=== PATIENT | female | born 1945 | race Caucasian/White ===

== ENCOUNTER 2020-08-11 17:56 | Inpatient (IN) | payer OTHER ==
[~2020-08-11] VITALS: Ht 167.6 cm; Wt 62.5 kg
[2020-08-11 17:57] VITALS: BP 139/51
[2020-08-11 18:51] LABS: ABSOLUTE NEUTROPHILS 8.9 thou/uL (1.4-8.2); HEMATOCRIT 42.8 % (37.0-47.0); HEMOGLOBIN 14.5 gm/dL (12.0-15.0); MCH 31.1 pg (26.0-34.0); MCHC 33.8 g/dL (28.0-37.0); MONOCYTES 10.7 % (1.0-8.0); PLATELET COUNT 225 thou/uL (150-400); POLYS 77.3 % (36.0-66.0); RBC 4.65 mil/uL (4.20-5.00); RDW 13.6 % (10.5-14.5); WBC 11.5 thou/uL (4.0-11.0)
[2020-08-11 18:54] LABS: URINE BILIRUBIN NEGATIVE (Negative); URINE BLOOD 3+ (Negative); URINE CLARITY CLEAR; URINE COLOR YELLOW; URINE GLUCOSE-RANDOM* 3+ (Negative); URINE KETONES 2+ (Negative); URINE LEUKOCYTES-REFLEX NEGATIVE (Negative); URINE NITRITE-REFLEX NEGATIVE (Negative); URINE PROTEIN (DIPSTICK) NEGATIVE (Negative); URINE SPECIFIC GRAVITY 1.015 (1.005-1.035); URINE UROBILINOGEN 0.2 E.U./dl (0.2-1.0)
[2020-08-11 18:56] LABS: CALCIUM 9.1 mg/dL (8.5-10.1); CREATININE 1.3 mg/dL (0.6-1.0); POTASSIUM 4.1 mmol/L (3.5-5.1)
[2020-08-11 19:14] LABS: BACTERIA-REFLEX None Seen /HPF (None Seen); CRYSTALS None Seen /LPF (None Seen); SQUAMOUS 0-3 Few /LPF (0-3); URINE RBC 1-2 Rare /HPF (NONE SEEN); URINE WBC-REFLEX None Seen /HPF (0-5)
[2020-08-11 19:17] LABS: ALBUMIN 3.9 g/dL (3.4-5.0); TOTAL BILIRUBIN 0.5 mg/dL (0.2-1.0); TOTAL PROTEIN 7.2 g/dL (6.4-8.2)
[2020-08-11] MEDS ORDERED: JANUVIA100 MG PO (19:25)
[2020-08-11] MEDS ORDERED: LIPITOR40 MG PO (19:25)
[2020-08-11] MEDS ORDERED: TRAZODONE HCL50 MG PO (19:26)
[2020-08-11] MEDS ORDERED: MECLIZINE HCL25 M1 PO ×2 (19:27→19:31)
[2020-08-11] MEDS ORDERED: LISINOPRIL2.5 MG PO (19:27)
[2020-08-11] MEDS ORDERED: GLIMEPIRIDE4 MG PO (19:28)
[2020-08-11] MEDS ORDERED: OMEPRAZOLE 20 M20 M1 PO (19:28)
[2020-08-11] MEDS ORDERED: METFORMIN HCL500 M3 PO (19:29)
[2020-08-11] MEDS ORDERED: RISPERDAL 1 MG T1 MG PO (19:30)
[2020-08-11] MEDS ORDERED: MELOXICAM15 MG PO (19:30)
[2020-08-11 19:48] LABS: TROPONIN-I 79.13 ng/mL (<0.06)
--- NOTE | 2020-08-11 20:23 | NUR ---
THIS NURSE CALLED JOHN COLLINS IN ATTEMPT TO FIND WORKING NUMBER FOR DAUGHTER TO INFORM FAMILY ON STATUS OF PATIENT. JOHN COLLINS GAVE ME NUMBER OF [phone] WHERE EMS CALL CAME FROM.
[2020-08-12 05:52] LABS: HEMATOCRIT 36.6 % (37.0-47.0); MCH 31.1 pg (26.0-34.0); MCHC 33.6 g/dL (28.0-37.0); MCV 92.5 fL (80.0-100.0); RBC 3.96 mil/uL (4.20-5.00); RDW 13.6 % (10.5-14.5); WBC 11.9 thou/uL (4.0-11.0)
[2020-08-12 05:57] LABS: HEMOGLOBIN 12.3 gm/dL (12.0-15.0)
[2020-08-12 06:09] LABS: CHOLESTEROL 102 mg/dL (<200); HDL CHOLESTEROL 38 mg/dL (>40); LDL CHOLESTEROL 25 mg/dL (<100); TC:HDL 2.7 Ratio (Not establshd); TRIGLYCERIDE 197 mg/dL (<150); VLDL 39 mg/dL (<40)
[2020-08-12 06:15] LABS: SERUM ASSESSMENT Clear
[2020-08-12 06:28] LABS: CALCIUM 8.1 mg/dL (8.5-10.1); CREATININE 0.8 mg/dL (0.6-1.0); POTASSIUM 3.5 mmol/L (3.5-5.1)
[2020-08-12 06:31] LABS: TROPONIN-I 57.46 ng/mL (<0.06)
--- NOTE | 2020-08-12 07:13 | EKG ---
[place] [address] [employer] [place] [address] ELECTROCARDIOGRAM REPORT Name: CLARISSE JONES Room #: 170-9 ADM IN M.R.#: [id number] Admission: 08/11/20 Attend Phys: Bryce Lucio, Discharge: Date of : 45 Report #: [id number] [facility] ED Test Date: 2020-08-11 Test Time: 20:02:24 Pat Name: CLARISSE JONES Department: Room: 170 Gender: F Collections Representative: : 1945 Requested By: Maria Guadalupe Collins Order Number: [id number] MD: Juan Flor Measurements Intervals [place] Rate: 92 P: AR: QRS: -45 QRSD: 70 T: 99 QT: 486 QTc: 602 Interpretive Statements Atrial flutter Ventricular premature complex Probable inferior infarct, recent Lateral leads are also involved Prolonged QT interval No previous ECG available for comparison Electronically Signed On 08-12-2020 7:13:10 CDT by Juan Flor [email or web address] <ELECTRONICALLY SIGNED> By: Juan Flor MD, [facility] 08/12/20 0713 01 01 Juan Flor MD, FACC /EPI
--- NOTE | 2020-08-12 07:49 | NUR ---
TOOK OVER CARE AT THIS TIME
--- NOTE | 2020-08-12 09:25 | 2DMMODE ---
[facility] [place] [address] 2 D/M-MODE ECHOCARDIOGRAM Name: CLARISSE JONES Room #: 170-9 ADM IN .R.#: [id number] Admission: 08/11/20 Attend Phys: Bryce Lucio, Discharge: Date of : 45 Report #: [id number] THIS REPORT FOR: cc: Nona Gagnon MD Mohan, Purnima, MD Lundgren,Sunny Pollock MD [facility] ~ APPROVED REPORT Study performed: 08/12/2020 08:20:00 EXAM: Comprehensive 2D, Doppler, and color-flow Echocardiogram Patient Location: ER Status: routine BSA: 1.74 HR: 66 bpm BP: 98/60 mmHg Rhythm: Irregular Other Information Study Quality: Adequate Technically limited study due to COPD and breast implants. Indications WA, Aflutter. Hx: COPD, DM. 2D Dimensions RVDd: 28.24 mm IVSd: 9.17 (7-11mm) LVOT Diam: 19.99 (18-24mm) LVDd: 39.52 mm PWd: 9.35 (7-11mm) Ascending Ao: 22.59 (22-36mm) LVDs: 27.24 (25-40mm) Left Atrium: 35.91 (27-40mm) Aortic Root: 26.81 mm Volumes Left Atrial Volume (Systole) Single Plane 4CH: 31.12 mL Aortic Valve AoV Peak Stephan.: 1.65 m/s AO Peak Gr.: 10.84 mmHg LVOT Max P.95 mmHg [facility] [address] [place] [address] 2 D/M-MODE ECHOCARDIOGRAM Name: JONESCLARISSE Emilia Room #: 170-9 ADM IN .R.#: [id number] Admission: 08/11/20 Attend Phys: Bryce Schreiber Discharge: Date of : 45 Report #: [id number] LVOT Max V: 1.41 m/s BRIDGET Vmax: 2.69 cm2 Mitral Valve E/A Ratio: 0.7 MV Decel. Time: 268.57 ms MV E Max Stephan.: 0.73 m/s MV A Stephan.: 1.01 m/s MV PHT: 77.88 ms IVRT: 76.12 ms Pulmonary Valve PV Peak Stephan.: 1.16 m/s PV Peak Gr.: 5.42 mmHg Pulmonary Vein P Vein S: 0.66 m/s P Vein D: 0.37 m/s P Vein S/D Ratio: 1.78 Tricuspid Valve TR Peak Stephan.: 2.81 m/s RAP Estimate: 5.00 mmHg TR Peak Gr.: 32.00 mmHg PA Pressure: 37.00 mmHg Left Ventricle The left ventricle is normal size. There is normal left ventricular wall thickness. Global eft ventricular systolic function is normal. Akinesis base of inferior wall LVEF is 60%. Mild diastolic dysfunction Right Ventricle The right ventricle is normal size. The right ventricular systolic function is normal. Atria The left atrium size is normal. The right atrium size is normal. Aortic Valve Aortic valve is mildly calcified, trileaflet. No aortic regurgitation is present. There is no aortic valvular stenosis. Mitral Valve The mitral valve is normal in structure. Mild-moderate mitral regurgitation. [facility] [address] [place] [address] 2 D/M-MODE ECHOCARDIOGRAM Name: CLARISSE JONES Emilia Room #: 170-9 [facility] IN ..#: [id number] Admission: 08/11/20 Attend Phys: Bryce Schreiber Discharge: Date of : 45 Report #: [id number] Tricuspid Valve The tricuspid valve is normal in structure. Mild tricuspid regurgitation. Estimated PAP is 35 mmHg. Pulmonic Valve The pulmonary valve is normal in structure. There is no pulmonic valvular regurgitation. Great Vessels The aortic root is normal in size. The ascending aorta is normal in size. IVC is normal in size and collapses >50% with inspiration. The pulmonary artery is normal. Pericardium There is no pericardial effusion. <Conclusion> Global eft ventricular systolic function is normal. Akinesis base of inferior wall LVEF is 60%. Mild diastolic dysfunction Aortic valve is mildly calcified, trileaflet. No aortic regurgitation or stenosis. The mitral valve is normal in structure. Mild-moderate mitral regurgitation. Mild tricuspid regurgitation. Estimated pulmonary artery pressure of 35 mmHg. There is no pericardial effusion. <ELECTRONICALLY SIGNED> By: Sunny Fan MD, FACC 08/12/20923 3 3 Sunny Fan MD, [facility] /INF
--- NOTE | 2020-08-12 12:44 | NUR ---
PT ASSISTED ONTO FRACTURE GAO AT THIS TIME WITH X2 RN'S AND TECH TO HAVE A BM
--- NOTE | 2020-08-12 13:00 | NUR ---
PT TAKEN OFF FRACTURE GAO. NO BM AT THIS TIME. PT REPOSITIONED IN BED. CALL LIGHT WITHIN REACH
--- NOTE | 2020-08-12 13:14 | NUR ---
SPOKE WITH SERGE CARROLL NP W/ FREDY. NOTIFIED OF EKG CHANGES. INFORMED WE ARE NOT INTERVENING AT THIS TIME AT DAUGHTER'S REQUEST. PT NOT EXHIBITING CHEST PAIN OR OTHER SYMPTOMS AT THIS TIME. NOTIFIED THAT PT HAS NOT TAKEN METOPROLOL AT THIS TIME. INSTRUCTED THAT IT CAN BE GIVEN IF PT ABLE, OTHERWISE "NOT A BIG DEAL IF NOT GIVEN"
--- NOTE | 2020-08-12 13:49 | NUR ---
WENT TO CHECK ON PT, PT HAD RIPPED IV OUT. PT STATES ACCIDENT THOUGH PT HOLDING IV BY THE CATHETER AND TIP IS INTACT BUT BENT. WILL PLACE NEW LINE. EDUCATION TO PT PROVIDED ON IMPORTANCE OF LEAVING DRAINS AND TUBES IN PLACE
[2020-08-12 14:38] VITALS: BP 113/52
--- NOTE | 2020-08-12 14:51 | NUR ---
REPORT GIVEN TO MARCELA ERAZO AT THIS TIME. PT READY AND STABLE FOR TRANSFER TO THE FLOOR
[2020-08-12 15:07] VITALS: BP 116/47
[2020-08-12 15:25] VITALS: BP 129/50
--- NOTE | 2020-08-12 16:28 | NUR ---
CM ANSWERED [facility] ON UNIT AND THEY INDICATED THAT YARD SPOTTER INDICATED THAT PT HAD CALLED 911. CM NOTIFIED NURSE, US, AND NUCLEAR UNIT OPERATOR. CM TO ASSESS PT IN THE AM AND REACH OUT TO FAMILY.
--- NOTE | 2020-08-12 16:53 | NUR ---
ASSUMED PT CARE UPON ADMISSION TO UNIT FROM ER AROUND 1530. PATIENT VSS, A&OX3. PATIENT REPORTS PAIN OF 10 IN THE RIGHT HIP, BUT IS DENYING PAIN MEDICATION WHEN OFFERED. WILL CONTINUE TO OFFER PAIN MEDICATION TO THIS PATIENT. NO SKIN ISSUES NOTED OTHER THAN BRUISING, BUT PATIENT IS NOT ALLOWING STAFF TO LOOK AT HER BACK HALF TO ASSESS FOR WOUNDS. PATIENT PLACED ON TELEMETRY RUNNING A FIB. IV PATENT TO LEFT AC, FLUIDS INFUSING. PATIENT IS ON ROOM AIR. POOL CATHETER IN PLACE DRAINING WELL. PATIENT HAS CALL LIGHT WITHIN REACH, AND FALL PRECAUTIONS ARE IN PLACE.
[2020-08-12 20:00] VITALS: BP 109/49
[2020-08-13 01:06] LABS: GLYCOHEMOGLOBIN (HGB A1C) 8.3 % (4.8-5.6)
--- NOTE | 2020-08-13 01:43 | NUR ---
assumed care approx 1900 evening 08/12. pt lying in bed with head of bed elevated at change of shift. family at bedside. pt somewhat confused and forgetful. blackman to dd with yellow urine to bag. pt pulled IV out from left ac and new IV site now in right wrist and wrapped with Koban to site. pt now NPO and did not drink much if any before midnight. bed alarm on and call light in reach. will continue to monitor.
--- NOTE | 2020-08-13 06:59 | EKG ---
[place] [address] [employer] [facility] [place] [address] ELECTROCARDIOGRAM REPORT Name: CLARISSE JONES Emilia Room #: 461-P ADM IN M.R.#: [id number] Admission: 08/11/20 Attend Phys: Bryce Lucio, Discharge: Date of : 45 Report #: [id number] [facility] Test Date: 2020-08-12 Test Time: 16:38:01 Pat Name: CLARISSE JONES Department: Room: [facility] Gender: F Instructor Of Nursing: JMI : 1945 Requested By: Larry Caicedo Order Number: [id number] MD: Juan Flor Measurements Intervals [place] Rate: 105 P: WI: QRS: 85 QRSD: 86 T: 123 QT: 389 QTc: 515 Interpretive Statements Atrial fibrillation Paired ventricular premature complexes Inferior infarct, acute (RCA) Prolonged QT interval Probable RV involvement, suggest recording right precordial leads Artifact in lead(s) I,II,aVR,aVL,V1,V2,V3,V4,V5,V6 Compared to ECG 08/11/2020 20:02:24 Atrial flutter no longer present Myocardial infarct finding still present Electronically Signed On 08-13-2020 6:59:28 CDT by Juan Flor [email or web address] <ELECTRONICALLY SIGNED> By: Juan Flor MD, [facility] 08/13/20 0659 1638 1638 Juan Flor MD, [facility] /EPI
[2020-08-13 08:20] VITALS: BP 128/62
[2020-08-13 08:35] LABS: CALCIUM 7.3 mg/dL (8.5-10.1); CREATININE 0.6 mg/dL (0.6-1.0); POTASSIUM 3.5 mmol/L (3.5-5.1)
--- NOTE | 2020-08-13 09:01 | EKG ---
[place] [address] [facility] [place] [address] ELECTROCARDIOGRAM REPORT Name: CLARISSE JONES Room #: 461- ADM IN M.R.#: [id number] Admission: 08/11/20 Attend Phys: Byrce Lucio, Discharge: Date of : 45 Report #: [id number] [facility] ED Test Date: 2020-08-11 Test Time: 19:56:39 Pat Name: CLARISSE JONES Department: Room: 461 Gender: F Machinist Supervisor Outside: diaz : 1945 Requested By: Maria Guadalupe Collins Order Number: [id number] MD: Sunny Fan Measurements Intervals [place] Rate: 85 P: [place]: QRS: 72 QRSD: 97 T: 99 QT: 414 QTc: 493 Interpretive Statements Atrial flutter Inferior infarct, acute (RCA) Poor R wave progression No previous ECG available for comparison Electronically Signed On 08-13-2020 9:01:30 CDT by Sunny Fan [email or web address] <ELECTRONICALLY SIGNED> By: Sunny Fan MD, [facility] 08/13/20900 55 55 Sunny Fan MD, FACC /EPI
--- NOTE | 2020-08-13 09:02 | EKG ---
[place] [address] [facility] [place] [address] ELECTROCARDIOGRAM REPORT Name: CLARISSE JONES Room #: 461- ADM IN M.R.#: [id number] Admission: 08/11/20 Attend Phys: Bryce Lucio, Discharge: Date of : 45 Report #: [id number] [facility] ED Test Date: 2020-08-11 Test Time: 20:01:23 Pat Name: CLARISSE JONES Department: Room: 461 Gender: F Radio News Anchor: diaz : 1945 Requested By: Maria Guadalupe Collins Order Number: [id number] MD: Sunny Fan Measurements Intervals [place] Rate: 83 P: AR: QRS: 79 QRSD: 95 T: 113 QT: 347 QTc: 408 Interpretive Statements Atrial flutter Inferior infarct, acute (RCA) Poor R wave progression Compared to ECG 08/11/2020 19:56:39 No significant change was found Electronically Signed On 08-13-2020 9:02:10 CDT by Sunny Fan [email or web address] <ELECTRONICALLY SIGNED> By: Sunny Fan MD, [facility] 08/13/20901 00 00 Sunny Fan MD, [facility] /EPI
--- NOTE | 2020-08-13 09:04 | EKG ---
[place] [address] [facility] [place] [address] ELECTROCARDIOGRAM REPORT Name: CLARISSE JONES Room #: 461- ADM IN M.R.#: [id number] Admission: 08/11/20 Attend Phys: Bryce Lucio, Discharge: Date of : 45 Report #: [id number] [facility] ED Test Date: 2020-08-12 Test Time: 13:03:17 Pat Name: CLARISSE JONES Department: Room: [facility] Gender: F Medical Research Assistant: unknown : 1945 Requested By: Maria Guadalupe Collins Order Number: [id number] MD: Sunny Fan Measurements Intervals [place] Rate: 88 P: 0 IL: QRS: 69 QRSD: 69 T: 109 QT: 356 QTc: 431 Interpretive Statements Accelerated junctional rhythm with occasional sinus beats Inferior infarct, acute (RCA) Poor R wave progression Compared to ECG 08/11/2020 20:02:24 Atrial flutter no longer present Electronically Signed On 08-13-2020 9:04:01 CDT by Sunny Fan [email or web address] <ELECTRONICALLY SIGNED> By: Sunny Fan MD, [facility] 08/13/20 0904 1303 1303 Sunny Fan MD, [facility] /EPI
[2020-08-13 11:57] LABS: MCV 93.7 fL (80.0-100.0)
[2020-08-13 12:03] LABS: HEMATOCRIT 33.6 % (37.0-47.0); HEMOGLOBIN 11.2 gm/dL (12.0-15.0); MCH 31.1 pg (26.0-34.0); MCHC 33.2 g/dL (28.0-37.0); RBC 3.59 mil/uL (4.20-5.00); RDW 13.8 % (10.5-14.5); WBC 12.4 thou/uL (4.0-11.0)
--- NOTE | 2020-08-13 12:41 | NUR ---
PT ADMITTED RELATED TO RIGHT HIP FRACTURE, L2 FRACTURE, NEW A FIB, MA. CM REVIEWED CHART AND SPOKE WITH CARE TEAM. CM MET WITH PT AT BEDSIDE THIS DAY. PT WAS ABLE TO ANSWER QUESTIONS ABOUT PRIOR LEVEL AND LIVING ARRANGEMENTS. PT INDICATED SHE RESIDES ALONE IN A MOBILE HOME WITH 5 STEPS TO ENTER AND NO STEPS INSIDE. PT INDICATED SHE HAS A CANE AND A FWW FOR USE AT HOME. 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 CM CALLED AND SPOKE WITH PT'S DTR ANGELINE AND SHE CONFIRMED THE ABOVE BUT THAT PCP IS DR. RUPAL MCGREGOR AT [facility]. PT IS TO HAVE SURGICAL INTERVENTION LATER THIS AFTERNOON. CM TO EMAIL [facility] TO DTR [email or web address] ANTICPATED THAT PT WILL NEED SNF AND WILL LIKELY DC BEGINING OF NEXT WEEK.
--- NOTE | 2020-08-13 16:12 | NUR ---
Patient alert and orinted to self, on room air, bedrest, pending sx on the 08/16/20 at 1030 per post up, incontinent of bowel, blackman in place, vitals stable, and afbrile. Call light with in reach. Bed alarm on. Will continue to monitor.
[2020-08-13 16:50] VITALS: BP 122/60
[2020-08-13 19:47] VITALS: BP 100/50
--- NOTE | 2020-08-13 19:55 | NUR ---
RN called Dr. Gonzalez, at 1600 of patients diet order since sx was canceled till 1030 on sunday. Order for clear liquids. Daughter would like her to take her phsyc medication. It is reconciled and physician will look it over and does not want to start at this time. Patient hasn't had it for roughly 5 days per patients daughter. physican aware. RN updated daughter and daughter would like patient to have a psyc consult. RN will relay this in report and we will let them know when they do rounding.
--- NOTE | 2020-08-14 06:00 | NUR ---
Pt. has had periods of agitation and yelling out at the staff. She took her clothes off and pulled out her iv. Pt. agitated this am and unable to put iv in at this time. Bed alarm is on.
[2020-08-14 07:45] VITALS: BP 121/59
[2020-08-14 15:50] VITALS: BP 130/63
--- NOTE | 2020-08-14 18:51 | NUR ---
ASSUMED CARE OF PATIENT AT SHIFT CHANGE. ASSESSMENT CHARTED. MEDS ADMINISTERED PER EMAR CRUSHED IN JELLO; HOWEVER DTR CLARIFIED PATIENT CAN SWALLOW PILLS WHOLE & PATIENT TOLERATED WELL W WHOLE PILLS AFTER. PATIENT HAD A BOWEL MOVEMENT, 2x THIS SHIFT, INCONTINENT BUT VOICES WHEN SOILED. EASILY REDIRECTED BUT CAN BE VERBALLY AGRESSIVE. NEW IV PLACED ON L UPPER ARM WITH PROTECTIVE WRAP. POOR APPETITE; ENCOURAGED TO EAT BUT REFUSES AT TIMES. STILL ON CLR LIQUIDS. SX SUNDAY. PATIENT VOICES NO FURTHER NEEDS. FALL PRECAUTIONS IN PLACE. WILL ENDORSE TO NOC RN
[2020-08-14 20:35] VITALS: BP 137/71
--- NOTE | 2020-08-15 05:35 | NUR ---
Assumed pt care at 1900. A/OX3,confused but able to voice needs. C/o pain to right hip especially with movement.medicated with Tylenol and effective. Aflutter on telemetry,controlled rate. VSS.Woody patent to DD with yellow urine. Takes meds whole or crushed. Fall precautions in place,resting quietly at this time.Will continue to monitor pt.
[2020-08-15 08:04] VITALS: BP 129/64
[2020-08-15 17:44] VITALS: BP 129/70
--- NOTE | 2020-08-15 18:47 | NUR ---
ASSUMED CARE OF PATIENT AT SHIFT CHANGE. ASSESSMENT CHARTED. MEDICATIONS ADMINISTERED PER EMAR. VSS. PATIENT IS ALERT TO SELF, SITUATION AND PLACE AT TIMES. PATIENT DOES MAKE NEEDS KNOWN. INCONT X1 THIS SHIFT. VOICES PAIN RELIEVED BY TYLENOL. WILL BE NPO AFTER MIDNIGHT FOR SX IN AM. REPOSITIONED Q2 HRS. BARRIER CREAM APPLIED TO EXCORIATED AREA ON BOTTOM. TOLERATED CLEAR LIQUID DIET. NO NEW NEEDS THIS SHIFT. DTR AT BEDSIDE. WILL CONTINUE TO MONITOR AND FOLLOW PLAN OF CARE
[2020-08-15 19:45] VITALS: BP 149/83
[2020-08-16] VITALS (12 sets, daily range): BP systolic 96–116; BP diastolic 41–59
--- NOTE | 2020-08-16 06:04 | NUR ---
Assumed pt care at 1900. A/OX3,with forgetfulness but able to make needs known. VSS. C/o right hip pain especially with movement, medicated with Tylenol per request. Woody patent with yellow urine. Pt has been NPO since midnight. Incontinent of loose BM this morning, 3 blisters noted on sacrum;2 open cleansed and covered in foam. WC cordinator consulted. Medicated with Fentanyl and effective at this time. Fall precautions in place,will continue to monitor pt.
[2020-08-16 10:19] LABS: HEMATOCRIT 34.9 % (37.0-47.0); HEMOGLOBIN 11.6 gm/dL (12.0-15.0); MCH 31.4 pg (26.0-34.0); MCHC 33.3 g/dL (28.0-37.0); MCV 94.4 fL (80.0-100.0); RBC 3.7 mil/uL (4.20-5.00)
[2020-08-16 10:33] LABS: CALCIUM 7.3 mg/dL (8.5-10.1); CREATININE 0.5 mg/dL (0.6-1.0); POTASSIUM 3.3 mmol/L (3.5-5.1)
[2020-08-16 14:43] LABS: HEMATOCRIT 30.7 % (37.0-47.0); HEMOGLOBIN 10.1 gm/dL (12.0-15.0)
--- NOTE | 2020-08-16 15:54 | EKG ---
[address] [place] [place] [address] ELECTROCARDIOGRAM REPORT Name: CLARISSE JONES Room #: 461- ADM IN M.R.#: [id number] Admission: 08/11/20 Attend Phys: Bryce Lucio, Discharge: Date of : 45 Report #: [id number] [facility] Test Date: 2020-08-16 Test Time: 15:41:34 Pat Name: CLARISSE JONES Department: Room: 461 Gender: F Onboarding Specialist: FSCHWALPURA : 1945 Requested By: Allyn Witt Order Number: [id number] MD: Juan Flor Measurements Intervals [place] Rate: 72 P: 104 IL: 386 QRS: 8 QRSD: 89 T: 123 QT: 425 QTc: 466 Interpretive Statements Suspect AFIB Prolonged [place] interval Anterior infarct, old Compared to ECG 08/12/2020 16:38:01 Ventricular premature complex(es) no longer present Prolonged QT interval no longer present Myocardial infarct finding still present Electronically Signed On 08-16-2020 15:54:22 CDT by Juan Flor [email or web address] <ELECTRONICALLY SIGNED> By: Juan Flor MD, [facility] 08/16/20 1554 1541 1541 Juan Flor MD, [facility] /EPI
--- NOTE | 2020-08-16 15:59 | NUR ---
PT HAD RIGHT HIP HEMIARTHROPLASTY THIS DAY. CM HAD PROVIDED PT'S DTR SNF LIST SUNDAY. CM TO FOLLOW UP WITH HER TO SEE WHERE SHE WANTS REFERRALS SENT. CM FOLLOWING REGARDING DC PLANNING.
--- NOTE | 2020-08-16 16:45 | NUR ---
This nurse agrees with the LINUX SYSTEMS ANALYST assessment. Patient had a change of shift post surgery. Physician will be called for an update and to determine if any additional orders are needed.
--- NOTE | 2020-08-16 16:59 | NUR ---
ASSUMED CARE OF PATIENT AT SHIFT CHANGE. ASSESSMENT CHARTED. BETA SIN ADMINISTERED W SMALL SIP OF WATER PER OR. VSS. PATIENT IS A&OX3 THIS DAY; IMPROVING WITH MENTAL STATUS. STILL VOICING HIP PAIN TONY WHEN TURNED. PATIENT LEFT FLOOR AT APPROX. 0900 FOR A HIP REPLACEMENT AND RETURNED AT ABOUT 1615. VITAL SIGNS ARE STABLE BUT DIASTOLIC BP ON SOFTER SIDE. PATIENT ON 2L NOW & TOLERATING WELL AT 98% O2. SEE PROCEDURE NOTES FOR EVENTS THAT OCCURED; HOSPITALIST NOTIFIED OF COMPLICATIONS. PATIENT WILL BE MONITORED CLOSELY. H&H REORDERED. PATIENT IS TOLERATING ICE WATER WELL; WILL MONITOR INTAKE AND TOLERANCE DURING DINNER. FLUIDS CONTINUED ON L UPPER ARM W NO ISSUES. PO ANALGESIC ADMINISTERED PER MAY. BEATRIZ HOSE ON BLE, SCDS IN PLACE; HEMOVAC IN PLACE AND INTACT. PATIENT VOICES NO FURTHER COMPLAINTS. WILL CONTINUE TO MONITOR CLOSELY.
[2020-08-17] VITALS: BP 103/47
--- NOTE | 2020-08-17 04:48 | NUR ---
ASSUMED CERE OF PT AT SHIFT CHANGE. PT IS AOX2-3 AND LETS NEEDS BE KNOWN. FALL PRECAUTION IN PLACE. ASSESSMENT CHARTED. PT IS POST OP DAY 0. HEMOVAC IN PLACE. ROSA DRESSING IS C/D/I. ASSESSMENT CHARTED. PT REPORTED SOME R HIP PAIN; PRNS PROVIDED. PT TURNED Q2-3HRS. POOL IN PLACE AND PATIENT. PT WAS ABLE TO GET COMFORTABLE AND SLEEP PART OF THE SHIFT. BP IS SOFT; OTHER VSS. WILL CONTINUE TO MONITOR FOR CHANGES.
[2020-08-17 06:02] LABS: HEMATOCRIT 27.8 % (37.0-47.0); HEMOGLOBIN 9.2 gm/dL (12.0-15.0)
[2020-08-17 08:54] VITALS: BP 101/42
--- NOTE | 2020-08-17 09:17 | NUR ---
WOUND CONSULT; THE PATIENT HAS A STAGE 2 PRESSURE INJURY TO THE SACRUM. PINK/RED WOUND BED. NO S/S OF INFECTION. THE PATIENT IS BEING TURNED EFFECTIVLY WITH PILLOWS. RECOMMENDATIONS; -LOW AIR LOSS PUMP. -XEROFORM/COVERED WITH A SMALL SACRAL FOAM CHANGE M,W,F PRN DISCUSSED WITH MARCELA
--- NOTE | 2020-08-17 15:39 | NUR ---
PT IS POD# 1 FROM R HIP HEMIARTHROPLASTY. CM CALLED AND SPOKE WITH PT'S DTR AND SHE ASKED THAT REFERRAL BE SENT TO [facility] FOR REVIEW FOR POSSIBLE ADMISSION. CM FAXED REFERRAL. CM FOLLOWING REGARDING DC PLANNING.
[2020-08-17 16:02] VITALS: BP 119/72
--- NOTE | 2020-08-17 16:09 | NUR ---
Received awake on bed. Due medications given as prescribed, able to swallow meds w/o difficulty. On room air. Vital signs stable. On telemetry; no complains and signs of chest pain, crushing sensation and heaviness. Assisted in ADLs. On [facility] altered diet- ongoing ST evaluation, pt seen this AM; no nausea, no vomiting and no abdominal pain noted; encouraged and assisted in eating and drinking. With blackman in place- draining well; output measured and recorded accordingly. With L UA IV; NS at 126cc/hr, infusing well. Buttocks with blisters- wound team aware; dressing changed this AM by wound nurse; pt turned regularly; low airloss mattress requested by wound nurse- applied to pt's bed. S/P R hip surgery 08/16; hemovac in place, ROSA dressing in place, C/D/I. BEATRIZ hose, SCDs in place. Pt's daughter called this AM, update given. On blood sugar monitoring, taken and recorded accordingly; with sliding scale insulin- given as prescribed. Pt seen by physical therapist Simone pt able to sit on the chair; to clarify to Dr Oates re: weight bearing status. To continue monitoring patient.
[2020-08-17 20:07] VITALS: BP 91/39
--- NOTE | 2020-08-18 04:33 | NUR ---
Pt. rested quietly at short intervals during the night when checked on during frequent rounds. She can have outbursts at times yelling angrily at staff with direct cares. No c/o pain. Dressing to right hip is intact. Bed alarm is on.
[2020-08-18 07:34] VITALS: BP 112/43
--- NOTE | 2020-08-18 11:55 | NUR ---
LORRIE SPOKE WITH CRISTINO IN ADMISSIONS AT [facility] THIS DAY. HE INDICATED THAT PT IS ACCEPTED MEDICALLY. CM FAXED UPDATED THERAPY NOTES FOR THEM TO SUBMIT FOR AUTH THIS DAY. CM INDICATED PT WOULD LIKELY BE MEDICALLY STABLE FOR DC TO SNF TOMORROW. CM NOTIFIED PT'S DTR. CM FOLLOWING REGARDING DC PLANNING.
--- NOTE | 2020-08-18 13:36 | O ---
[facility] [place] [address] OPERATIVE REPORT Name: CLARISSE JONES Room #: 461-P [facility] IN M.R.#: [id number] Admission: 08/11/20 Attend Phys: Bryce Lucio, Discharge: Date of : 45 Report #: [id number] THIS REPORT FOR: cc: Nona Gagnon MD Mohan, Purnima, MD Clymer, David J. MD ~ DOC #: [id number] León Oates MD DATE OF SERVICE: 08/16/2020 PREOPERATIVE DIAGNOSIS: Complex comminuted fracture, right proximal femur. POSTOPERATIVE DIAGNOSIS: Complex comminuted fracture, right proximal femur. PROCEDURE: Right proximal femur hemiarthroplasty with long stem cemented implant and greater trochanter claw cage with cerclage wires. SURGEON: León Oates MD INDICATIONS: This frail 74-year-old female with significant psychiatric disease is still functional and living at home. She fell several days ago and I believe spent at least a day on the floor at home before she was found by family. She was then admitted and found to have rhabdomyolysis as well as a complex fracture of the right proximal femur. I have discussed with the patient and her daughter the treatment options and we elected to go ahead with surgical repair using a hemiarthroplasty technique. I have explained that this is difficult given ___. DESCRIPTION OF PROCEDURE: The patient was taken to the operating room where she was placed under general anesthesia. Prophylactic intravenous antibiotics were administered. She was turned to the left lateral decubitus position. The right hip, thigh and leg were meticulously prepped and draped. A slightly curving posterolateral skin incision was made centered over the greater trochanter extending slightly more distally to expose more of the femur. The incision was extended through fascia and the gluteus was spread bluntly. The posterior aspect of the hip was visualized. The short external rotators and caps were taken down and preserved and tagged with several #2 FiberWire sutures. The fracture was found to be comminuted and irregular in the intertrochanteric region extending into the subtrochanteric region. There was also a fracture and separation of the greater trochanter. The femoral head was removed and measured at 46 mm in diameter. The canal was carefully opened with reamers and broaches. The Gross and Nephew hip system was utilized. Both cemented and noncemented techniques were considered. I felt the bone was rather soft and osteoporotic and probably would not well tolerate a vigorous press Fit device. Given this, I felt a long stem cemented device might be the safest and most stable. Placement was difficult given the poor bone quality and the degree of comminution and difficulty with alignment given the comminution. A trial reduction was [facility] [address] [place] [address] OPERATIVE REPORT Name: ROBERTCLARISSE Emilia Room #: 461-P [facility] IN M.R.#: [id number] Admission: 08/11/20 Attend Phys: Bryce Lucio, Discharge: Date of : 45 Report #: [id number] performed and a size 12 implant seemed to sit most appropriately. A +8 mm neck length was selected and this seemed to reconstitute appropriate length and stability. A 46 mm head was inserted and also seemed to fit nicely. With these trial components in place, the hip seemed to be at appropriate length and appropriate rotation with appropriate general stability, the greater trochanter could then be brought back to an appropriate level and I felt this could be secured using a trochanteric claw with multiple cerclage wires. This temporary alignment and fixation was confirmed with several C-arm imaging views in the operating room. At this point, once I felt I had a satisfactory solution for fixation, the trial components were removed. Methyl methacrylate cement was mixed and injected into the canal. The Gross and Nephew size 12 x 175 mm length Bivalve femoral stem was then selected. This was placed in the canal with the calcar plate sitting nicely on a firm cortical bone. Alignment was adjusted to allow about 20 degrees of anteversion, which seemed to sit nicely and allow adequate hip stability. Gentle pressure was applied as the cement hardened. Once the cement was firm, alignment, range of motion and stability were once again assessed. The trial head was removed and a +8 mm neck length with a 46 mm cobalt chrome head was selected. This was impacted on the Lynn taper and the hip was once again reduced. Once again alignment and stability and leg lengths seemed to be satisfactory. Once this part of the construct had been completed, a greater trochanter claw plate was applied engaging the trochanter in a satisfactory fashion. This was then secured with 3 cerclage cables, which tended to bring the trochanter back firmly to an adequate position. These were tightened down carefully to avoid further bony fracture. Once again, C-arm views were obtained and revealed adequate alignment and fixation. At this point, I felt the fixation was as good as I could obtain. The capsule and short external rotators were then repaired back to bone using a #2 FiberWire sutures passed through the greater trochanter. This seemed to add nicely to hip stability. A single Hemovac was left in the wound exiting through a separate stab incision. The fascia was closed with multiple #1 Vicryl sutures. The subcutaneous tissues were closed with 0 Monocryl. The skin was closed with skin christiano. A sterile dressing was applied. The patient was awakened and returned to recovery room in good condition. Estimated blood loss was about 500 mL. MD SAMANTHA Dickinson/SATHISH <ELECTRONICALLY SIGNED> By: León Oates MD 08/18/20 1336 [id number] León Oates MD /nt
[2020-08-18 15:22] VITALS: BP 102/44
--- NOTE | 2020-08-18 16:40 | NUR ---
PT CARE ASSUMMNED THIS AM, PT ALERT AND ORIENTED X4, FLAT AFFECT. DENIES ANY CHEST PAIN, NAUSEA AND VOMITTING. PT MEDICATED FOR RIGHT HIP PAIN. ROSA DRESSING INTACT. WOTRKED WITH PT/OT, WAS FOR A COUPLE HOURS. ST CAME AND SAID PT PASSED TEST AND CAN HAVE THIN LIQUIDS. POOL CATHETER IN PLACE, SECURED AND PATENT. NO BM ON THIS SHFIT. FALL PRECAUTIONS IN PLACE. DENIES ANY NEEDS AT MOMENT. WILL CONTINUE TO MONITOR.
[2020-08-18 19:30] VITALS: BP 120/56
[2020-08-19 07:37] VITALS: BP 126/61
--- NOTE | 2020-08-19 08:20 | NUR ---
RECEIVED CARE OF THIS PATIENT AT 1900. PATIENT ALERT AND ORIENTED X4 WITH PERIODS OF CONFUSION AND FORGETFULNESS. FORGETS HAS A POOL AND NEEDS REMINDING OFTEN. HAS DRESSING ON R HIP THE IS INTACT. HAS TEDS AND SCD'S WELL. MEDS CRUSHED AND PUT IN PUDDING. ACCUCHECK WAS 268, RECEIVED 12 UNITS LISPRO INSULIN. SLEPT MOST OF NIGHT.
--- NOTE | 2020-08-19 14:23 | NUR ---
WOUND CARE F/U; THE SACRUM WOUND HAS IMPROVED GREATLY. IT IS MUCH SMALLER AND LOOKS CLINICALLY BETTER WITH LESS ERYTHEMA. RECOMMENDATIONS; CONTINUE CURRENT TX. DISCUSSED WITH MARCELA
--- NOTE | 2020-08-19 14:48 | NUR ---
CM FAXED UPDATED CLINICAL AND THERAPY NOTES TO [employer] THIS AM. NO AUTH YET. CM FOLLOWING REGARDING ANTICIPATED DC TO [facility] ONCE AUTH IS RECEIVED.
[2020-08-19 15:29] VITALS: BP 120/61
--- NOTE | 2020-08-19 16:21 | HC ---
[facility] [place] [address] CONSULTATION Name: CLARISSE JONES Room #: 461-P [facility] IN ..#: [id number] Admission: 08/11/20 Attend Phys: Bryce Lucio, Discharge: Date of : 45 Report #: [id number] THIS REPORT FOR: cc: Nona Gagnon MD Mohan, Purnima, MD Deardorff, Valerie A. MD ~ DOC #: [id number] Gracie Lowe MD DATE OF SERVICE: 08/12/2020 REASON FOR CONSULTATION: Right hip fracture. HISTORY OF PRESENT ILLNESS: The patient is a 74-year-old female who fell. She was found down with loss of bowel and bladder function and shortened right leg. EMS believe she may have fallen a few days ago and has not been able to move. She lives by herself. She was transferred to the Emergency Department, evaluated and diagnosed with a hip fracture as well as multiple other abnormalities. I was asked to evaluate the patient and determine orthopedic treatment options. The patient reports pain to her right hip and was unable to move. PAST MEDICAL HISTORY: Significant for dementia, Parkinson's, paranoid schizophrenia, diabetes, and COPD. She denies requiring oxygen at home and reports living by herself. She does have a daughter who is involved in her care. MEDICATIONS: Home medications include Januvia, atorvastatin, trazodone, lisinopril, omeprazole, glimepiride, metformin, risperidone, meloxicam and meclizine. ALLERGIES: No known drug allergies. SOCIAL HISTORY: Tobacco, alcohol use is unknown. She reports walking with a cane. Reports that she does not have any pets at home. SURGICAL HISTORY: Unknown. NEUROLOGIC: Denies numbness or tingling. MUSCULOSKELETAL: See HPI. LABORATORY DATA: Done on 08/12/2020, white blood cell count 11.9, hemoglobin 12.3, hematocrit 36.6, and platelet count 196. Chemistry is pending. COVID test is pending. PHYSICAL EXAMINATION: [facility] [address] [place] [address] CONSULTATION Name: CLARISSE JONES Emilia Room #: 461-P [facility] IN ..#: [id number] Admission: 08/11/20 Attend Phys: Bryce Lucio, Discharge: Date of : 45 Report #: [id number] GENERAL: The patient is awake, alert and oriented x2. She is a thin, well-developed, well-nourished female in no acute distress. VITAL SIGNS: Most recent vital signs show temperature of 36.3, heart rate is 100, respiratory rate 21, blood pressure 113/52, pulse oximetry 95% on room air. EXTREMITIES: Examination of her bilateral upper extremities, she moves them without difficulty. Skin is clean, dry and intact. Gross sensory and motor intact. No tenderness to palpation or pain with motion of the bilateral upper extremities. Right lower extremity is shortened. She has pain with hip range of motion. Bilateral lower extremities are neurovascularly intact. She wiggles her toes. Good capillary refill. Gross sensory and motor is intact. There is no tenderness to palpation through her right knee, leg, ankle or foot. RADIOGRAPHS: AP pelvis and AP and lateral of the right hip show a displaced subcapital femoral neck fracture with probable greater trochanteric fracture. CT confirms this. ASSESSMENT AND PLAN: Right proximal femur fracture in a patient with multiple medical issues. I have been made aware that she is a DNR/DNI. Her daughter wishes to proceed with surgical treatment. I will speak with her as well in order to stabilize the patient's hip for end of life care. The risks, benefits, alternatives and complications were discussed with the patient including but not limited to infection, damage to vessels or nerves ___ and hardware failure, decreased ambulatory level, leg length discrepancy. I will speak with my partners and we will determine a plan of action. I have asked that the medical team let me know when she is medically optimized for surgery. Hopefully, surgery can be on Sunday if this allows in order to optimize her mobility. Questions were encouraged and answered to the best of my ability. MD ACE Edwards/DASIA <ELECTRONICALLY SIGNED> By: Gracie Loew MD 08/19/20 1621 [id number] Gracie Lowe MD /nt
--- NOTE | 2020-08-19 17:41 | NUR ---
ASSUMED CARE OF PATIENT AT SHIFT CHANGE. ASSESSMENT CHARTED. MEDICATIONS ADMINISTERED PER EMAR. VSS. PATIENT IS A&OX3-4 AND ABLE TO MAKE NEEDS KNOWN. PATIENT VOICES PAIN ON R HIP RELIEVED BY PRN PERCOCET. SWALLOW EVAL THIS DAY; DETERMINED TO BE ON MECHANICAL SOFT DIET (NO TEETH); MEDS WHOLE; NO STRAWS; CHIN DOWN WHEN SWALLOWING. PATIENT TOLERATED INTAKE WELL. IV ON UPPER ARM STILL INTACT; SL. OFFERED REPOSITIONING Q2HRS. POOL IN PLACE AND PATENT. WORKED WITH PT/OT; ABLE TO TRANSFER FROM BED TO CHAIR X1-2 WITH GB AND WALKER. NO BM THIS SHIFT; NARCOTIC USE UP POST SURGERY. PATIENT VOICES NO FURTHER NEEDS. WILL CONTINUE TO MONITOR CLOSELY AND FOLLOW THE PLAN OF CARE
[2020-08-19 19:04] VITALS: BP 102/60
[2020-08-19 21:57] VITALS: BP 102/60
--- NOTE | 2020-08-19 22:11 | NUR ---
UPON SHIFT ASSESSMENT, PT SLEEPING, AWAKENS EASILY TO VERBAL AND TACTILE STIMULATION, FLACC OF 0. PT REFUSING ALL HS MEDICATIONS INCLUDING INSULIN FOR 215 BLOOD SUGAR. PT RESTING IN BED WITHOUT OBSERVATION OF PAIN, DISCOMFORT OR SOB WHILE ON ROOM AIR. FREQUENT REPOSITIONING ENCOURAGED WHILE IN BED, PT INTERMITTENTLY REFUSING REPOSITIONING ASSISTANCE, LOW AIR LOSS MATTRESS IN PLACE. PT ENCOURAGED TO NOTIFY STAFF FOR ALL NEEDS, CALL LIGHT WITHIN REACH, BED ALARM ON, BED LOCKED IN LOWEST POSITION, ROOM REMAINS NEAR NURSES STATION, FREQUENT MONITORING WILL CONTINUE.
--- NOTE | 2020-08-20 05:02 | NUR ---
Pt. rested quietly during the night when checked on during frequent rounds. She has had a few episodes of yelling outloud and also yelling at staff during direct care. Refused HS meds. Dressing to right hip is intact. Treatment done to coccyx as ordered. Bed alarm is on.
--- NOTE | 2020-08-20 05:17 | NUR ---
Pt. keeps taking off her heart monitor leads.
[2020-08-20 08:04] VITALS: BP 141/68
[2020-08-20] MEDS ORDERED: AMOX TR-K CLV1 EAC4 PO (09:34)
[2020-08-20] MEDS ORDERED: METOPROLOL SUCC50 MG PO (09:34)
--- NOTE | 2020-08-20 12:12 | NUR ---
STILL AWAITING HARLEY DUFFY FOR LISA AT [facility]. APPARENTLY REQUEST WAS RECEIVE YESTERDAY RATHER THAN WENDESDAY FACILITY HAD INDICATED. CM FOLLOWING REGARDING DC PLANNING.
[2020-08-20 15:28] VITALS: BP 126/46
--- NOTE | 2020-08-20 17:05 | NUR ---
ASSUMED CARE OF PATIENT AT SHIFT CHNAGE. ASSESSMENT CHARTED MEDICATIONS ADMINISTERED PER EMAR. VSS. PATIENT IS A&OX3-4 AND IS ABLE TO VOICE NEEDS. PATIENT VOICES PAIN ON L HIP RELIEVED BY PRN PO ANALGESICS. PATIENT TOLERATING PO INTAKE WELL. POOL IN PLACE AND REMAINS PATENT WITH APPROPRIATE OUTPUT. PATIENT WORKED WITH PT THIS DAY; UP X1 AND TOLERATED WELL. NAPPING OFF AND ON THIS DAY. REPOSITINING OFFERED EVERY TWO HOURS & NEEDED. PATIENT ALSO ON LEANDRO MATTRESS. DENIES FURTHER NEEDS; WILL CONTINUE TO MONITOR AND FOLLOW PLAN OF CARE
[2020-08-20 20:22] VITALS: BP 119/55
--- NOTE | 2020-08-21 05:27 | NUR ---
Pt. has rested quietly during the shift in the recliner chair. This nurse asked patient several times during the night if she wanted to get in the bed, but patient refused each time. Pt. does have a non-productive congested cough with poor cough effort. O2 saturation 95% on room air. Swallowing precautions taken as per speech therapy. Chair alarm is on.
[2020-08-21 07:33] VITALS: BP 137/58
--- NOTE | 2020-08-21 14:48 | NUR ---
Received awake on bed. Due medications given as prescribed, crushed and mixed with pudding. On MS, not on telemetry; no complains and signs of chest pain, crushing sensation and heaviness. Assisted in ADLs. On room air. Vital signs stable. On mechanically altered diet- assisted in eating and drinking; on aspiration precautions; tolerating diet well; no nausea, no vomiting and no abdominal pain noted. On blood sugar monitoring, taken and recorded accordingly. With blackman in place- draining well; output measured and recorded accordingly. With SL at L upper arm. S/P R hip surgery- ROSA dressing soiled; dressing changed as per protocol. Sacrum dressing in place. Pt turned on her sides regularly, on low airloss mattress. Able to sit out on the chair. No complains of pain made during assessment. Falls bundle in place. Pt with audible crackles/congestion this AM- Dr Cruz seen and examined pt during his rounds this AM; chest xray ordered- results reviewed by physician. To continue monitoring patient.
[2020-08-21 15:18] VITALS: BP 117/56
[2020-08-21 19:30] VITALS: BP 111/55
--- NOTE | 2020-08-22 04:11 | NUR ---
RECEIVED CARE OF THIS PATIENT AT 1900. PATIENT ALERT AND ORIENTED TO PERSON, PLACE AND SITUATION, NOT TO TIME. HAS ROSA DRESSING ON R HIP. ALSO HAS SCD'S AND TEDS ON. ACCUCHECK WAS 167, RECEIVED 8 UNITS LISPRO INSULIN. CALLED OUT DURING FIRST PART OF SHIFT BUT WENT TO SLEEP AND SLEPT MOST OF NIGHT. DENIES PAIN.
[2020-08-22 08:28] VITALS: BP 115/56
--- NOTE | 2020-08-22 18:19 | NUR ---
ASSUMED PATIENT CARE AT 1030. A/O X2. IRRITATED. GENERLIZED EDEMA. PAIN MED GIVEN. ROSA DRESSING INTACTED. SOLWLT TOWARDS POC GOALS.
[2020-08-22 20:02] VITALS: BP 107/55
[2020-08-23 05:06] LABS: HEMATOCRIT 24.4 % (37.0-47.0); HEMOGLOBIN 8.1 gm/dL (12.0-15.0); MCH 31.7 pg (26.0-34.0); MCHC 33.2 g/dL (28.0-37.0); MCV 95.7 fL (80.0-100.0); RBC 2.54 mil/uL (4.20-5.00); RDW 15.6 % (10.5-14.5); WBC 8.7 thou/uL (4.0-11.0)
[2020-08-23 05:35] LABS: CALCIUM 7.7 mg/dL (8.5-10.1); CREATININE 0.5 mg/dL (0.6-1.0); POTASSIUM 3.7 mmol/L (3.5-5.1)
--- NOTE | 2020-08-23 06:40 | NUR ---
ASSUME CARE 1900. PT.VITALS STABLE. INTERMITTENT RIGHT HIP PAIN INDICATED WITH RELIEF FROM PAIN MEDICATION. A/O X 4. ASSESSMENT CHARTED. PROGRESSING MODERATELY TO POC. RIGHT HIP ROSA DRESSING INTACT BUT DRESSING SATURATED WITH SEROUS DRAINGE. NO DISTRESS NOTED THROUGH THE SHIFT. PLAN IS TO CONTINUE TO MANAGE PAIN AND MONITOR FOR INFECTION. WILL CONTINUE TO MONITOR AND FOLLOW WITH POC
[2020-08-23 07:45] VITALS: BP 108/60
--- NOTE | 2020-08-23 10:55 | NUR ---
Assumed pt care this am, vs stable. WAs able to work [employer] PT and stayed on the receliner for most of the day. ROSA dressing on the right thigh, dry and intact. Medications crushed and given with pudding.
--- NOTE | 2020-08-23 11:48 | NUR ---
CM REACHED OUT VIA EMAIL TO [employer]TA[employer] AND THEY INDICATED THAT THEY HAD ATTEMTPED TO NOTIFY FACILITY OF DENIAL NUMEROUS TIMES OVER WEEKEND. THEY INDICATED THEY WERE ABLE TO LEAVE VM WITH SOMEONE AT THE FACILITY BY THE NAME OF NAVIN THIS AM AT 8:45. LORRIE CALLED AND SPOKE WITH CRISTINO IN ADMISSIONS AND HE WASN'T AWARE OF DENIAL. CM INDICATED THE ABOVE HE WAS GOING TO REACH OUT TO NAVIN AND GET PEER TO PEER INFO. CM AWAITING RESPONSE.
--- NOTE | 2020-08-23 13:14 | NUR ---
WOUND CARE F/U; THE LOWER BACK/BUTTOCKS WOUND IS FRAGIALLY HEALED TODAY. THE RIGHT HIP ROSA DRESSING IS FULL AND NEEDS TO BE REPALACED. THE RN LETY CALL THE SURGEON FOR ORDERS. THE DRAIAGE IS YELLOW. RECOMMENDATIONS; -CONTINUE ZGUARD TO LEFT BUTTOCKS. -RN TO ADRESSS ROSA. WOUND CARE WILL F/U IF NEEDED/IF NOT WE WILL SIGN OFF.
[2020-08-23 15:32] VITALS: BP 97/46
--- NOTE | 2020-08-23 15:35 | NUR ---
Assumed pt care this am, VS stable. Pt was able to work with PT and stayed on the recliner in the am til first half of the pm. Diet and medications are tolerated well, medications need to be crushed and given with pudding. Pt is very rude and condecending to staff. ROSA dressing soaked, spoke to Eulalia MEDRANO from Dr. Tidwell office, specified that dressing needs to be changed and this needs to be on the pt for at least 2 weeks. Eulalia MEDRANO mentioend that they need to be informed when and where the pt leaves so that they can follow. And if there is any concern to call her [phone]
[2020-08-23 20:19] VITALS: BP 113/38
--- NOTE | 2020-08-24 06:26 | NUR ---
Assumed pt care at 1900. /OX2-3,able to voice needs at times. VSS. C/o pain to Right hip with movement. Medicated with Percocet with relief reported,takes meds crushed without problems. Repositioned as tolorated,pillow in between her legs. ROSA dsg C/D/I right hip. Woody patent to DD with yellow urine, incontinent of BM htis morning Zguard applied to sacrum/buttocks. Does have an effective cough,LS coarse. Fall precautions in place.
[2020-08-24 11:43] LABS: ABSOLUTE NEUTROPHILS 5.2 thou/uL (1.4-8.2); BASOPHILS 0.6 % (0.0-2.0); HEMATOCRIT 27.6 % (37.0-47.0); HEMOGLOBIN 9.1 gm/dL (12.0-15.0); LYMPHOCYTES 13.9 % (24.0-44.0); MCH 31.7 pg (26.0-34.0); MCHC 32.9 g/dL (28.0-37.0); MCV 96.4 fL (80.0-100.0); MONOCYTES 8.2 % (1.0-8.0); PLATELET COUNT 256 thou/uL (150-400); POLYS 76.3 % (36.0-66.0); RBC 2.87 mil/uL (4.20-5.00); RDW 16.3 % (10.5-14.5); WBC 6.9 thou/uL (4.0-11.0)
--- NOTE | 2020-08-24 11:47 | NUR ---
YESTERDAY DR. WILLS FAILED TO CALL THE PEER TO PEER BY 4:30 AND THEY DENIAL FOR SKILLED WAS ISSUED. CM CALLED [employer] THIS AM PER REQUESTE OF SUPERINTENDENT RENTING MANAGING AND THEY INDICATED THAT THEN ONLY RECOURSE AT THIS TIME WOULD BE TO TELEPHONICALLY INITIATE AN EXPIDATED APPEAL BY CALLING . CM NOTIFIED SUPERINTENDENT RENTING MANAGING, CM MECHATRONICS ENGINEER, AND SURGEON. SUPERINTENDENT RENTING MANAGING TO INITIATE APPEAL AND CDI TO WORK UP CLINICAL SUIMMERY FOR REVIEW. CM FOLLOWIGN REGARDING DC PLANNING.
[2020-08-24 12:01] LABS: CALCIUM 7.9 mg/dL (8.5-10.1); CREATININE 0.6 mg/dL (0.6-1.0); POTASSIUM 4.1 mmol/L (3.5-5.1)
[2020-08-24 17:30] VITALS: BP 112/52
--- NOTE | 2020-08-24 20:07 | NUR ---
Assumed pt care this am, vs stabel. Had BM today, stayed on the recliner for most of the day. ROSA dressing was compromised by the pt late in the pm. Pt went down for and x-ray. Diet and medications are tolerated well. Medications need to be crushed and be given with pudding. FC in place draining light yellow urine. Awaiting auth. Maintained on mechanical soft diet and thin liquids. Endorsed to the night nurse.
[2020-08-24 20:41] VITALS: BP 113/54
[2020-08-25 05:34] LABS: HEMATOCRIT 25.3 % (37.0-47.0); HEMOGLOBIN 8.6 gm/dL (12.0-15.0); MCH 32.5 pg (26.0-34.0); MCHC 33.9 g/dL (28.0-37.0); MCV 95.9 fL (80.0-100.0); RBC 2.64 mil/uL (4.20-5.00); RDW 15.4 % (10.5-14.5); WBC 6.6 thou/uL (4.0-11.0)
[2020-08-25 06:16] LABS: CALCIUM 7.9 mg/dL (8.5-10.1); CREATININE 0.3 mg/dL (0.6-1.0); POTASSIUM 3.6 mmol/L (3.5-5.1)
[2020-08-25 07:43] VITALS: BP 108/49
--- NOTE | 2020-08-25 07:52 | NUR ---
Assumed pt care at 1900. A/OX2-3,confused but cooperative with cares. Denies pain on assessment though slpinting on right hip when moved. ROSA dsg changed at beginning of shift and patent. Woody patent to DD with yellow urine,incontinent of bowels. Fall precautions in place. Takes meds crushed in applesauce w/o problems.
--- NOTE | 2020-08-25 15:19 | NUR ---
CM CALLED AND SPOKE WITH PT'S DTR. CM NOTIFIED HER OF DENIAL FOR SKILLED REHAB SERVICES. DISCUSSED OPTIONS FOR DC TO PT'S HOME, DTR'S HOUSE, AND FACILITY PP WITH PART B THERAPIES. DTR INDICATED PREFERENCE PP AT FACILITY WITH PART B THERAPY SERVICES PT NEEDS MORE ASSIST THEN SHOULD WOULD BE ABLE TO GET AT HER OWN HOME OR HER DTRS WITH JUST HH. DTR ASKED FOR PRICING INFO FOR [facility] AND [facility]. LORRIE SPOKE WITH CRISTINO IN ADMISSIONS AT [facility] AND HE WILL CALL CM BACK WITH INFO. CM SPOKE WITH ADMISSIONS AND THEY PP RATED IS $282 PER DAY THEY REQUIRE 30 UPFRONT PAYMENT UPON ADMISSION SO $8,460. CM TO NOTIFY PT'S DTR AND ASSIST FURTHER WITH DC PLANNING.
[2020-08-25 15:28] VITALS: BP 105/53
[2020-08-25 20:25] VITALS: BP 100/44
--- NOTE | 2020-08-26 03:37 | NUR ---
PT CARE ASSUMED WITH DTR AND SON AT THE BED AT SHIFT CHANGE.PT IS A/O X3.PT IS UP WITH X2 ASSIST AND MAX ASSIST.PT IS INCONTINENT TO B/B AND CAN BE CONTINENT.PT IS ACCUCHECK ACHS WITH SSI.PT DENIED PAIN.DRESSING ON RT HIP WITH ROSA C/D/I.WILL CONTINUE TO MONITOR
[2020-08-26 07:47] VITALS: BP 113/53
[2020-08-26 16:11] VITALS: BP 110/59
--- NOTE | 2020-08-26 16:19 | NUR ---
08/25/20 ASSUMED CARE OF PATIENT AT SHIFT CHANGE. ASSESSMENT CHARTED. MEDICATIONS ADMINISTERED CRUSHED IN PUDDING. DENIED PAIN; WITHDRAWN THIS DAY AND NOT ALERT USUAL. PATIENT WORKED W PT AND OT AND CONTINUED TO DO WELL. POOL IN PLACE AND INTACT; POOL CARE COMPLETE. PATIENT HAD 2 LG BM'S THIS SHIFT. FAMILY VISITED AFTER DINNER. PATIENT DENIED FURTHER NEEDS. ENDORSED TO NOC RN. 08/26/20 ASSUMED CARE OF PATIENT AT SHIFT CHANGE. ASSESSMENT CHARTED. MEDICATIONS ADMINISTERED PER EMAR, CRUSHED IN PUDDING. PATIENT PAINFUL THIS DAY; STATING RT HIP/LEG IS HURTING. PRN PERCOCET ADMINISTERED PER EMAR PROVIDING NO RELIEF. SPOKE TO PATIENT DTR AND WOULD LIKE TO REFRAIN FROM USING IV PAIN MEDICATION. PATIENT DID WORK WITH OT THIS DAY BUT DID NOT DO WELL. PATIENT STILL TOLERATING PO INTAKE WELL; SUPERVISED AT MEALS W NO SIGNS OF ASPIRATION NOTED. FSBS STABLE; HOWEVER REFUSED TO EAT FOR LUNCH. POOL REMIANS IN PLACE AND PATENT. Q2 TURNING OFFERED TO PATIENT; REFUSING AT TIMES DUE TO PAIN. PATIENT PENDING PLACEMENT; OTHERWISE MEDICALLY STABLE. WILL CONTINUE TO MONITOR AND FOLLOW PLAN OD CARE
--- NOTE | 2020-08-26 19:36 | NUR ---
PROVIDERS DR. ROSARIO AND YOLANDE NOTIFIED ABOUT PATIENTS PAIN; ATTEMPTING TO REACH ORTHOPEDIC SURGEON VIA ANSWERING SVC.
[2020-08-26 20:18] VITALS: BP 102/49
--- NOTE | 2020-08-27 02:40 | NUR ---
PT CARE ASSUMED WITH FAMILY AT BEDSIDE .PT IS A/O X3.PT C/O PAIN ON RT HIP AND PERCOCET GIVEN FOR PAIN MANAGEMENT.PT ROSA DRESSING ON RT HIP C/D/I.PT HAS A POOL IN PLACE AND PT IS INCONTINENT.PT TAKE MEDS CRUSHED IN PUDDING OR APPLE SAUCE.PT IS ACCUCHECK ACHS WITH SSI.WILL CONTINUE TO MONITOR
[2020-08-27 05:07] LABS: HEMOGLOBIN 8.7 gm/dL (12.0-15.0); MCH 31.2 pg (26.0-34.0); MCHC 32.3 g/dL (28.0-37.0); MCV 96.5 fL (80.0-100.0); RBC 2.8 mil/uL (4.20-5.00); RDW 16.9 % (10.5-14.5); WBC 6.7 thou/uL (4.0-11.0)
[2020-08-27 05:23] LABS: CALCIUM 7.9 mg/dL (8.5-10.1); CREATININE 0.4 mg/dL (0.6-1.0); POTASSIUM 3.9 mmol/L (3.5-5.1)
[2020-08-27 09:02] VITALS: BP 136/60
--- NOTE | 2020-08-27 18:53 | NUR ---
ASSUMED CARE OF PATIENT AT SHIFT CHANGE. ASSESSMENT CHARTED. MEDICATIONS ADMINISTERED PER EMAR. VSS. PATIENT IS ALERT AND ORIENTEDX2-3 AND CONFUSED/FORGETFUL AT TIMES. PATIENT VOICES PAIN ON R HIP RELIEVED BY PRN PERCOCET AND TYLENOL. POOL IN PLACE UNTIL DR. KHANNA ORDERED TO DC IT. PATIENT WAS UP X 2 TO CHAIR & BSC. TOLERATED INTAKE WELL. NO FURTHER CHNAGES NOTED. PLACEMENT STILL PENDING. WILL ENDORSE TO JOHN RN
[2020-08-27 20:05] VITALS: BP 115/57
--- NOTE | 2020-08-27 20:10 | NUR ---
ORDERS IN TO TAKE INDER OUT; PATIENT STATED "I DON'T WANT IT DONE RIGHT NOW" ANGRILY. PATIENT INFORMED THEY WILL HAVE TO TAKE THEM OUT TOMORROW. PATIENT STATED "OKAY".
[2020-08-27 21:28] VITALS: BP 115/57
[2020-08-28 08:20] VITALS: BP 112/47
--- NOTE | 2020-08-28 08:22 | NUR ---
UPON SHIFT ASSESSMENT, PT AOX4 WITH INTERMITTENT FORGETFULNESS. PT WITH FLAT AFFECT AND COOPERATIVE BEHAVIORS. PT REPORTS 8/10 PAIN IN RIGHT HIP. PT RECEIVING PRN IV FENTANYL Q4HR AND PRN PO OXYCODONE Q4HR. PT DENIES SOB WHILE ON ROOM AIR. PT TOLERATING PO INTAKE OF FLUIDS AND MECHANICAL ALTERED GROUND DIET WITHOUT ISSUE. PT WITHOUT NAUSEA OR EMESIS. PT AMBULATING WITH X1-2 ASSIST AND GAIT BELT TO BEDSIDE COMMODE, RESTING IN BED OTHERWISE. FREQUENT REPOSITIONING ENCOUARGED WHILE IN BED, PT REFUSING REPOSITIONING ASSISTANCE DUE TO INCREASED PAIN WITH MOVEMENT AND TACTILE STIMULATION. SENSATION INTACT, CAPILLARY REFILL LESS THAN 3SEC, PERIPHERAL PULSES FAINT IN ALL EXTREMITIES. PT ENCOURAGED TO NOTIFY STAFF FOR ALL NEEDS, CALL LIGHT WITHIN REACH, BED ALARM ON, BED LOCKED IN LOWEST POSITION, ROOM REMAINS NEAR NURSES STATION, FREQUENT MONITORING WILL CONTINUE. UPON END OF SHIFT, COORDINATED CARE WITH DR. LEYVA, ADVISED TO REMOVE INDER, CLEAN WITH BETADINE, APPLY AQUACEL AG, AND COVER. INDER REMOVED WITH ONCOMING NURSE, SURGICAL WOUND APPROXIMATED WELL, NO DRAINAGE NOTED UPON STAPLE REMOVAL. FREQUENT MONITORING WILL CONTINUE.
--- NOTE | 2020-08-28 15:21 | NUR ---
ASSUMED PT CARE THIS AM. PT IS A&OX3, WITH FORGETFULNESS. PATIENT REMAINS INCONTINENT, CHANGING NEEDED. PATIENT TOOK MEDICATIONS CRUSHED WITHOUT ISSUE. PATIENT RESPONDED WELL TO PAIN MEDICATION GIVEN THIS AM, DENIES NEEDING ANY PAIN MEDICATION AT THIS TIME. PATIENT HAS AN INTERMITTENT COUGH. ABRASIONS NOTED TO BACK OF BILATERAL LEGS. PATIENT PLACED ON 2 LITERS OF OXYGEN VIA NC FOR SATURATION OF 93%. FALL PRECAUTIONS ARE IN PLACE, CALL LIGHT WITHIN REACH.
[2020-08-28 16:00] VITALS: BP 124/52
[2020-08-28 21:20] VITALS: BP 140/50
--- NOTE | 2020-08-29 03:20 | NUR ---
ASSESSED AT START OF SHIFT. PT A&OX1 CONFUSED EVENING MEDS GIVEN CRUSHED IN PUDDING AND PT ESA IT WELL. PT INCONTINENT OF URINE. ON 2L OF O2 BUT SOMETIMES PULLS IT OUT. RA O2 94%. RIGHT HIP DRESSING C/D/I. FALL PREC IN PLACE AND HOURLY ROUNDING DONE WILL CONT TO MONITOR.
[2020-08-29 07:59] VITALS: BP 130/63
--- NOTE | 2020-08-29 17:10 | NUR ---
Patient was agitated and confused during the first hours of the shift, calm and cooperative for the rest of the shift, bed rest. complained pain in the right hip, pain medication given and worked.
[2020-08-29 20:47] VITALS: BP 114/52
--- NOTE | 2020-08-30 05:21 | NUR ---
Pt. rested quietly during the night when checked on during frequent rounds. She offers no c/o pain. Dressing intact to right hip. Bed alarm is on.
[2020-08-30 08:24] VITALS: BP 118/54
--- NOTE | 2020-08-30 16:42 | NUR ---
CM ATTEMPTED PT TO PT'S DTR EARLIER TO DETERMINE PREFERENCE FOR COUSTODIAL PLACEMENT FOR HER MOM. CM TO CALL AGAIN. CM FOLLWING REGARDING DC PLANNING.
--- NOTE | 2020-08-30 19:58 | NUR ---
ASSUMED PT CARE THIS AM. PT IS AWAKE AND CONFUSED AT TIMES. PT HAS IV SITE ON L UA SALINE LOCKED. PT IS INCONTINENT OF BLADDER AND BOWEL. CHANGED PAD MULTIPLE TIMES AND USES BEDPAN. PT HAS O2 2L NC. PT IS ACCUCHECK ACHS. DID WOUND CARE ON SACRUM WITH NS, ZGUARD AND FOAM DRESSING. NO C/O OF PAIN, NAUSEA AND VOMITING DURING THE SHIFT. PT IS ON SWALLOW PRECAUTION. PT TOLERATED MEDICATION WELL. CRUSH MEDICATION WITH APPLE SAUCE. PT DAUGHTER WAS AT THE BEDSIDE. PT ON THE BED, BED ON THE LOWEST POSITION, SIDE RAILS UP, CALL LIGHT WITHIN REACH. WILL CONTINUE TO MONITOR PT. FOLLOW POC.
[2020-08-30 20:54] VITALS: BP 116/55
--- NOTE | 2020-08-31 04:55 | NUR ---
Assumed pt care at 1900. A/OX3,confused but able to voice needs. Pt gets easily agitated during cares and curses at staff. VSS.Pt is incontinent of bladder;pericare done and divya applied PRN. Dsg C/D/I to right hip. C/o pain to right hip with movement,medicated with Tylenol with relief reported. Fall precautions in place,calls approp for help.
[2020-08-31 05:43] LABS: HEMATOCRIT 31.7 % (37.0-47.0); HEMOGLOBIN 10.1 gm/dL (12.0-15.0); MCH 30.4 pg (26.0-34.0); MCHC 31.9 g/dL (28.0-37.0); MCV 95.3 fL (80.0-100.0); RBC 3.33 mil/uL (4.20-5.00); WBC 6.4 thou/uL (4.0-11.0)
[2020-08-31 06:05] LABS: CALCIUM 8.3 mg/dL (8.5-10.1); CREATININE 0.4 mg/dL (0.6-1.0); POTASSIUM 3.7 mmol/L (3.5-5.1)
[2020-08-31 07:57] VITALS: BP 132/58
--- NOTE | 2020-08-31 12:33 | NUR ---
CM MET WITH PT AND DTR AT BEDSIDE THIS DAY. DTR HAD NOTERY PRESENT TO COMPLETE MEDICAL DPOA. IT WAS COMPLETED AND PLACED ON CHART. DTR AN PT INDICATED THAT THEY WERE RECEPTIVE TO PT GOING TO [facility] FOR COUSTODIAL CARE WITH PART B THERAPY SERVICES UNITL PT GETS INCREASE IN WB STATUS. CM REACHED OUT TO JESUS IN ADMISSIONS AT THE FACILITY. CM TO FAX UPDATED CLINICAL INFO. CM ASSISTING WITH DC PLANNING.
[2020-08-31 15:27] VITALS: BP 129/66
--- NOTE | 2020-08-31 15:28 | NUR ---
ASSUMED PT CARE THIS AM. PT A&OX3 AND ABLE TO MAKE NEEDS KNOWN. PATIENT REPORTING PAIN IN THE RIGHT HIP THIS AM THAT RESPONDED WELL TO PAIN MEDS GIVEN PER EMAR. PATIENT HAS BEEN CONTINENT AND INCONTINENT THIS SHIFT. PATIENT HAS A COUGH. DRESSING CHANGED TO RIGHT HIP. BARRIER CREAM APPLIED TO PATIENT'S BOTTOM. PATIENT TOOK ALL MEDICATIONS CRUSHED WELL. FALL PRECAUTIONS ARE IN PLACE, CALL LIGHT WITHIN REACH.
--- NOTE | 2020-09-01 05:14 | NUR ---
Assumed pt care at 1900. A/OX3,confused but able to make needs known. VSS.C/o right hip pain, medicated with Tylenol and effective.Dsg C/D/I.Incontinent of bladder this shift. Resting quietly at this time. Fall precautions in place.
[2020-09-01 08:21] VITALS: BP 125/59
[2020-09-01 08:23] VITALS: BP 125/59
--- NOTE | 2020-09-01 14:42 | NUR ---
CM CALLED AND SPOKE WITH PT'S DTR ANGELINE SHE INDICATED THAT SHE CAN PAY HALF THE NEEDED AMOUNT RIGHT NOW BUT THAT SHE NEEDS TO GO TO PT'S BANK TO MOVE MONEY FROM [place] TO CHECKING AND SHE ISN'T CERTAIN TO HOW LONG THAT WILL TAKE. CM NOTIFIED LIAISON JESUS OF THE ABOVE. CM FOLLOWING REGARDING DC PLANNING.
[2020-09-01 16:37] VITALS: BP 131/54
--- NOTE | 2020-09-01 18:47 | NUR ---
ASSUMED CARE OF PATIENT AT SHIFT CHANGE. ASSESSMENT CHARTED. MEDICATIONS ADMINISTERERED PER EMAR; PATIENT TOLERATED WHOLE MEDS THIS DAY WITH NO ISSUES. PATIENT UP WITH PT THIS DAY AND CONTINUES TO IMPROVE. NO ASPIRATION NOTED OR VOICED THIS SHIFT. PATIENT HAD A BM THIS SHIFT ON BEDPAN. VOIDS WELL PER COMMODE; INCONTINENT AT TIMES. PLAN IS FOR PATIENT TO D/C TO [place] AFTER DTR TAKES CARE OF FINANCIAL SIDE OF THINGS. VOICED PAIN AND ASKS FOR PERCOCET AND TYLENOL; RELIEF NOTED. WILL ENDORSE TO NOC RN
[2020-09-01 20:24] VITALS: BP 113/52
--- NOTE | 2020-09-02 00:04 | NUR ---
Assumed pt care at 1900. A/OX3, VSS. Denies pain on assessment. Incontinent of bladder,pt offered purewick and agreeable to. Resting quietly at this time w/o any distress noted,will continue to monitor pt.
[2020-09-02 07:42] VITALS: BP 140/52
--- NOTE | 2020-09-02 15:27 | NUR ---
ASSUMED CARE OF PATIENT AT SHIFT CHANGE. ASSESSMENT CHARTED. MEDICATIONS GIVEN PER MAY. VITAL SIGNAS REMIAN STABLE. PATIENT IS A&OX3-4 STILL WITH FORGETFULNESS AND SOME CONFUSION. PATIENT UP X1-2 TO CHAIR AND BACK TO BED; CONTINUING IMPROVEMENT WORKING W PT. PATIENT HAD A BM x2 THIS SHIFT; INCONTINENCE. PUREWICK ATTEMPTED BUT UNSUCCESSFUL. PATIENT VOICING PAIN ON AND OFF THIS SHIFT; RELIEVED BY PRN PAIN ANALGESICS. REPOSITIONING OFFERED Q2HRS. PATIENT DENIES FURTHER NEEDS. FALL PRECAUTIONS REMAIN IN PLACE. ANTICIPATING D/C TO [place] SOON. WILL CONTINUE TO MONITOR AND FOLLOW PLAN OF CARE.
--- NOTE | 2020-09-02 16:03 | NUR ---
LORRIE CALLED AND SPOKE WITH ANGELINE AND SHE INDICATED THAT SHE HAD SPOKEN WITH [employer] AND THAT SHE NEEDS TO GO IN PERSON TO A [facility] TO TRANSFER FUNDS TO PAY [facility] THE 30 DEPOSIT FOR COUSTODIAL CARES SO THEY CAN ADMIT PT. SHE AGAIN INGUIRED ABOUT A PARTIAL PAYMENT. CM REACHED OUT TO JESUS AND ASKED HER TO REACH OUT TO ANGELINE TO DISCUSS AGAIN. CM FAXED CLINICAL UPDATE. LORRIE TRYING TO GET PT TO [facility] FOR COUSTODIAL CARE WITH PART B THERAPIES UNTIL SHE GETS AN ADVANCEMENT IN WB STATUS.
[2020-09-03 05:20] LABS: HEMATOCRIT 34.8 % (37.0-47.0); HEMOGLOBIN 10.9 gm/dL (12.0-15.0); MCH 29.7 pg (26.0-34.0); MCHC 31.4 g/dL (28.0-37.0); MCV 94.7 fL (80.0-100.0); RBC 3.67 mil/uL (4.20-5.00); RDW 16.4 % (10.5-14.5); WBC 6.3 thou/uL (4.0-11.0)
[2020-09-03 05:33] LABS: CALCIUM 8.5 mg/dL (8.5-10.1); CREATININE 0.4 mg/dL (0.6-1.0); MAGNESIUM 1.8 mg/dL (1.8-2.4); POTASSIUM 3.7 mmol/L (3.5-5.1)
[2020-09-03 07:25] VITALS: BP 131/45
[2020-09-03 15:14] VITALS: BP 119/46
--- NOTE | 2020-09-03 15:55 | NUR ---
JEAN CARLOS reviewed chart and spoke with nursing and attending physician. Pt is medically stable for discharge to post-acute care. Pt has been accepted to [facility] pending payment for one-month. JEAN CARLOS spoke with [place] post-acute liaison who states that they have not received payment. JEAN CARLOS spoke with pt's dtr, Vashti, via phone to discuss discharge plan. Vashti states that she is now wanting a referral to be sent to [facility]. Pt's was at [facility] last year and they had a good experience with that facility. JEAN CARLOS explained to Vashti that she will likely have to pay up front at [facility] for pt to be admitted as private pay with part B therapy until pt is able to participate with therapy. Vashti verbalized understanding. JEAN CARLOS faxed referral to [facility] and spoke with Jewell in admissions. Will review info and reach out to pt's dtr to discuss the financial aspect of admission. JEAN CARLOS updated [place] post-acute liaison. Will update [place] once pt's family has officially decided on a facility. Private pay for one month at [facility] is $8460. JEAN CARLOS updated pt's nurse and attending physician. JEAN CARLOS is following to assist as needed with discharge planning.
[2020-09-03 19:40] VITALS: BP 122/72
--- NOTE | 2020-09-03 20:11 | NUR ---
Received awake on bed. Due medications given as prescribed, able to swallow meds w/o difficulty- crushed and mixed apple sauce. On room air. Vital signs stable. On MS, not on telemetry; no complains and signs of chest pain, crushing sensation and heaviness. On mechanically altered diet- assisted and encouraged in eating and drinking; no nausea, no vomiting and no abdominal pain noted; set-up done. On blood sugar monitoring, taken and recorded accordingly. With on and off incontinence- checked frequently and changed as needed; able to use bedside commode/bedpan at times. With SL at L upper arm. With redness at her buttocks- Z guard applied every incontinence episode. With dressing at R hip- changed today; no bleeding and drainage noted; dressing dry; tolerated dressing change. Complained of pain, due PRN pain meds given as prescribed. Still a/w placement for patient; pt's daughter called this AM and wanting referral to be sent to [facility]- relayed this to . Pt able to sit out on the chair; transferred back to bed safely. To continue monitoring patient.
--- NOTE | 2020-09-04 02:26 | NUR ---
ASSUMED PT CARE TA 1899.PT WAS OBSERVED LYING DOWN ON HER BED WITH HER EYES CLOSED AT SHIFT CHANGE.PT CALLED OUT TO GO TO THE BR,BUT LATER CAHNGED HER MIND WHEN THE STAFF PUT THE GB ON HER.PT STATED THAT SHE WAS TOO WEAK TO GET OUT OF BED AND REQUESTED FOR A BEDPAN INSTEAD.DRSG TO HER R HIP C/D/I.Z GUARD TO HER BUTTOCKS.PT STILL WITH NON PRODUCTIVE WET COUGH.CXR DONE AT .PT SLEEPING ON HER BED AT THIS TIME.CALL LIGHT WITHIN REACH.
[2020-09-04 07:45] VITALS: BP 133/73
--- NOTE | 2020-09-04 15:02 | NUR ---
ASSUMED PT CARE THIS AM. PATIENT HAS BEEN CONTINENT AND INCONTINENT THIS SHIFT. PATIENT HAS REDNESS ON HER BOTTOM, APPLYING ZGUARD. PATIENT REPORTING NO PAIN. PATIET HAS A LOOSE COUGH, SWALLOWING SPUTUM WHEN SHE COUGHS IT UP. IV PATENT, SALINE LOCKED. PATIENT TOOK ALL MEDS CRUSHED IN PUDDING WELL. FALL PRECAUTIONS ARE IN PLACE, CALL LIGHT WITHIN REACH.
[2020-09-04 16:10] VITALS: BP 106/59
[2020-09-04 19:10] VITALS: BP 111/56
--- NOTE | 2020-09-05 03:15 | NUR ---
PT BEEN RESTING IN NO ACUTE DISTRESS.A/OX3.VSS.VOICED NEEDS TO STAFF.STAFF ASSIST W/TOILETING.RIGHT HIP DRESSING CDI.NO S/SX OF ASPIRATION NOTED THIS SHIFT.ASSESSMENT COMPLETED DOCUMENTED.POSSIBLE DISCHARGE ON SUNDAY TO SNF.WILL CONT TO MONITOR PER POC.
[2020-09-05 04:40] VITALS: BP 114/59
[2020-09-05 07:58] VITALS: BP 119/73
--- NOTE | 2020-09-05 13:19 | NUR ---
ASSUMED PT CARE THIS AM. PT A&OX3, ABLE TO MAKE NEEDS KNOWN. PATIENT HAS BEEN INCONTINENT THIS SHIFT. PATIENT DOES NOT WANT TO GET OUT OF BED, ENCOURAGED TO AMBUALTE WITH STAFF. PATIENT REFUSING ABDUCTOR PILLOW, EDUCATED ON IMPORTANCE OF THIS. PATIENT REPORTS THAT SHE UNDERSTANDS AND DOES NOT WANT IT PLACED. PATIENT HAS COARSE LUNG SOUNDS AND A LOOSE COUGH, PHYSICIAN NOTIFIED. APPLYING BARRIER CREAM ON PATIENTS BOTTOM. FALL PRECAUTIONS ARE IN PLACE, CALL LIGHT WITHIN REACH.
[2020-09-05 16:40] VITALS: BP 140/53
[2020-09-05 19:25] VITALS: BP 106/53
[2020-09-06 07:36] VITALS: BP 127/54
--- NOTE | 2020-09-06 08:50 | NUR ---
PT LYING IN BED. DENIES PAIN. SOME INCONTINENCE. RESTING COMFORTABLY. NO NEEDS VOICED. CALL LIGHT WITHIN REACH. FREQUENT OBSERVATION.
--- NOTE | 2020-09-06 14:54 | NUR ---
CM CALLED ADMISSIONS AT THIS AFTERNOON AND ANASTASIA INDICATED THAT SHE NEVER RECIEVED REFERRAL ON SUNDAY. CM RESENT AND ASKED HER TO REACH OUT TO PT'S DTR ANGELINE RELATED TO AMISSION AND PAYMENT. ORTHO GOT REPEAT X-RAY THIS AFTERNOON RELATED TO POSITION AND DISCONFORT. AWAITING RESULTS. CM FOLLOWING REGARDING DC PLANNING.
--- NOTE | 2020-09-06 15:17 | NUR ---
ASSUMED CARE OF PT AT 0700 THIS MORNING. PT IS ADMITTED FOR RIGHT HIP FX. PT HAS ABD PAD WITH TAPE OVER INCISION, C/D/I. PT IS A/OX3 WITH CONFUSION AND FORGETFULNESS. ASSESSMENT CHARTED AND OTHERWISE UNREMARKABLE. PT RIGHT LEG IS ROTATED INTERNALLY AND REFUSES TO USE ABDUCTOR PILLOW. INFORMED DR. STROUD AND HE ORDERED XRAYS TO BE TAKEN. IV IN LEFT UA WITH SL. CALL LIGHT AND OTHER NEEDS ARE PLACED WITHIN REACH. MEDS AND TX GIVEN NEEDED AND SCHEDULED.
[2020-09-06 15:50] VITALS: BP 130/105
[2020-09-06 20:20] VITALS: BP 108/55
--- NOTE | 2020-09-07 03:26 | NUR ---
PT CARE ASSUMED WITH PT SITTING IN THE CHAIR WITH FAMILY AT BEDSIDE WITH PT.PT IS A/O X3.SOMETIMES FORGETFUL AND CONFUSE.PT IS ACCUCHECK ACHS.PT IS UP WITH X2 ASSIST WITH GAIT BELT AND WALKER.IV ACCESS ON LT UA SL.PT IS INCONTINENT TO B/B.INCISION ON RT HIP DRY WITH NO ISSUES.PT C/O PAIN AND PAIN MANAGED WITH TRAMADOL.WILL CONTINUE TO MONITOR PER POC
[2020-09-07 07:48] VITALS: BP 138/53
[2020-09-07 08:25] VITALS: BP 138/53
--- NOTE | 2020-09-07 11:12 | NUR ---
ASSUMED PT CARE THIS AM. PT A&OX3, ABLE TO MAKE NEEDS KNOWN. PATIENT REQUESTED IV BE REMOVED IF RECEIVING NO IV MEDS OR FLUIDS. PHYSICIAN NOTIFIED OF THIS, AND REPORTED THAT NO NEW IV NEEDED TO BE STARTED AT THIS TIME. PATIENT UP WITH ASSIST, HAS BEEN INCONTINENT THIS SHIFT. PATIENT TOOK MORNING MEDICATIONS WITHOUT ISSUE. PATIENT CONTINUING TO REFUSE ABDUCTOR PILLOW OR REPOSITIONING OF RIGHT LEG, DR. STROUD MADE AWARE. PATIENT IS ON ROOM AIR. REPORTING NO PAIN, NUMBNESS, OR TINGLING. PATIENT IS ABLE TO MOVE TOES WITHOUT ISSUE. FALL PRECAUTIONS ARE IN PLACE, CALL LIGHT WITHIN REACH.
--- NOTE | 2020-09-07 11:18 | NUR ---
CM CALLED AND SPOKE WITH ADMISSIONS AT AND THEY RECEIVED REFERRAL AND ARE ABLE TO ACCEPT PT MEDICALLY. THEY ARE RUNNING PT'S PART B. ANASTASIA TO REACH OUT TO DTR ANGELINE TO DISCUSS PAYMENT. THEY ALSO REQUIRE 30 DAY PAYEMENT PRIOR TO ADISSION WHICH DTR IS AWARE OF. CM FOLLOWING REGARDING DC PLANNING.
== END 2020-09-07 16:48 | DRG 853 ==
LOC: ER 17:56 → 4W 21:37 → EROBS 21:37 → 4W 08-12 15:18
PROVIDERS: Anesthesiology; Emergency Medicine; Hospitalist; Internal Medicine; Nurse Practitioner Family; Orthopaedic Surgery Hand Surgery; Student in an Organized Health Care Education/Training Program; ADMIT Surgery; ATTEND Surgery
PROC: 0SRR019 Replacement of Right Hip Joint, Femoral Surface with Metal Synthetic Substitute, Cemented, Open Approach (ICD-10-PCS; principal; 2020-08-16)
DX: A41.9 Sepsis, unspecified organism (principal); S72.001A Fracture of unspecified part of neck of right femur, initial encounter for closed fracture; N17.0 Acute kidney failure with tubular necrosis; I21.19 ST elevation (STEMI) myocardial infarction involving other coronary artery of inferior wall; G93.41 Metabolic encephalopathy; J69.0 Pneumonitis due to inhalation of food and vomit; S32.020A Wedge compression fracture of second lumbar vertebra, initial encounter for closed fracture; M62.82 Rhabdomyolysis; I48.92 Unspecified atrial flutter; I48.20 Chronic atrial fibrillation, unspecified; G20 Parkinson's disease; F02.80 Dementia in other diseases classified elsewhere, unspecified severity, without behavioral disturbance, psychotic disturbance, mood disturbance, and anxiety; F20.9 Schizophrenia, unspecified; J44.9 Chronic obstructive pulmonary disease, unspecified; Z66 Do not resuscitate; E11.22 Type 2 diabetes mellitus with diabetic chronic kidney disease; N18.9 Chronic kidney disease, unspecified; F17.210 Nicotine dependence, cigarettes, uncomplicated; E11.65 Type 2 diabetes mellitus with hyperglycemia; D50.0 Iron deficiency anemia secondary to blood loss (chronic); W18.39XA Other fall on same level, initial encounter; Z20.822 Contact with and (suspected) exposure to COVID-19; Y93.89 Activity, other specified; Z79.84 Long term (current) use of oral hypoglycemic drugs; Z79.899 Other long term (current) drug therapy; Y92.89 Other specified places as the place of occurrence of the external cause; Y99.8 Other external cause status
CPT/HCPCS: 10045; 10047; 50010; 50101; 50382; 50414; 51057; 51130; 51225; 51412; 53000; 56521; 56525; 56530; 57116; 57254; 58135; 58138; 58762; 58807; 58808; 58809; 62110; 62900; 70005

== ENCOUNTER 2020-10-12 16:51 | Emergency (ER) | payer OTHER ==
[~2020-10-12] VITALS: Ht 172.7 cm; Wt 59.0 kg
[~2020-10-12 16:51] MED LIST: AMOX TR-K CLV1 EAC4 PO; GLIMEPIRIDE4 MG PO; JANUVIA100 MG PO; LIPITOR40 MG PO; LISINOPRIL2.5 MG PO; MECLIZINE HCL25 M1 PO; MELOXICAM15 MG PO; METFORMIN HCL500 M3 PO; METOPROLOL SUCC50 MG PO; OMEPRAZOLE 20 M20 M1 PO; RISPERDAL 1 MG T1 MG PO; TRAZODONE HCL50 MG PO
[2020-10-12 18:11] LABS: BASOPHILS 1.1 % (0.0-2.0); EOSINOPHILS 0.3 % (0.0-3.0); HEMATOCRIT 38.2 % (37.0-47.0); HEMOGLOBIN 12.7 gm/dL (12.0-15.0); LYMPHOCYTES 20.8 % (24.0-44.0); MCH 29.6 pg (26.0-34.0); MCHC 33.4 g/dL (28.0-37.0); MCV 88.8 fL (80.0-100.0); MONOCYTES 7.1 % (1.0-8.0); PLATELET COUNT 230 thou/uL (150-400); POLYS 70.7 % (36.0-66.0); RDW 15.2 % (10.5-14.5); WBC 8.5 thou/uL (4.0-11.0)
[2020-10-12 18:20] LABS: ANION GAP 6 mmol/L (7-16); BUN 16 mg/dL (7-18); CALCIUM 9.6 mg/dL (8.5-10.1); CHLORIDE 102 mmol/L (98-107); CO2 31 mmol/L (21-32); CREATININE 0.7 mg/dL (0.6-1.0); GLUCOSE 200 mg/dL (74-106); POTASSIUM 4.2 mmol/L (3.5-5.1); SODIUM 139 mmol/L (136-145)
[2020-10-12 18:30] LABS: ALBUMIN 3.7 g/dL (3.4-5.0); SGOT 21 U/L (15-37); SGPT 25 U/L (14-59); TOTAL BILIRUBIN 0.3 mg/dL (0.2-1.0); TOTAL PROTEIN 6.7 g/dL (6.4-8.2); TROPONIN-I <0.06 ng/mL (<0.06)
[2020-10-12] MEDS ORDERED: TOPROL XL100 MG PO (20:17)
[2020-10-12 20:53] VITALS: BP 113/45
--- NOTE | 2020-10-13 07:37 | EKG ---
[place] [address] [facility] [place] [address] ELECTROCARDIOGRAM REPORT Name: CLARISSE JONES Room #: DEP [facility]#: [id number] Admission: 10/12/20 Attend Phys: Discharge: 10/12/20 Date of : 45 Report #: [id number] [facility] ED Test Date: 2020-10-12 Test Time: 17:49:30 Pat Name: CLARISSE JONES Department: Room: Gender: F Functional Support Analyst: KMD : 1945 Requested By: León Rdz Order Number: [id number] MD: Juan Flor Measurements Intervals [place] Rate: 130 P: ND: QRS: -6 QRSD: 76 T: -49 QT: 291 QTc: 428 Interpretive Statements Atrial flutter Ventricular premature complex Anterior infarct, old Borderline repolarization abnormality Compared to ECG 08/16/2020 15:41:34 Ventricular premature complex(es) now present Atrial fibrillation no longer present First degree AV block no longer present Myocardial infarct finding still present Electronically Signed On 10-13-2020 7:37:25 CDT by Juan Flor [email or web address] <ELECTRONICALLY SIGNED> By: Juan Flor MD, [facility] 10/13/20 0737 [id number] Juan Flor MD, [facility] /EPI
--- NOTE | 2020-10-13 07:38 | EKG ---
[facility] [place] [address] ELECTROCARDIOGRAM REPORT Name: CLARISSE JONES [facility] [id number] Admission: 10/12/20 Attend Phys: Discharge: 10/12/20 Date of : 45 Report #: [id number] 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1945 Requested By: León Rdz Order Number: [id number] MD: Juan Flor Measurements Intervals [place] Rate: 86 P: 112 UT: 222 QRS: -44 QRSD: 85 T: 24 QT: 477 QTc: 571 Interpretive Statements Sinus rhythm Prolonged UT interval Consider right atrial enlargement Lateral leads are also involved Prolonged QT interval Compared to ECG 08/16/2020 15:41:34 Prolonged QT interval now present Atrial fibrillation no longer present Electronically Signed On 10-13-2020 7:38:07 CDT by Juan Flor [email or web address] <ELECTRONICALLY SIGNED> By: Juan Flor MD, [facility] 10/13/20 0738 34 34 Juan Flor MD, [facility] /EPI
== END 2020-10-12 23:08 | disposition home or self-care (01) ==
LOC: ER 16:51
PROVIDERS: Emergency Medicine
DX: S00.03XA Contusion of scalp, initial encounter (principal); Z20.822 Contact with and (suspected) exposure to COVID-19; I48.91 Unspecified atrial fibrillation; F03.90 Unspecified dementia, unspecified severity, without behavioral disturbance, psychotic disturbance, mood disturbance, and anxiety; G20 Parkinson's disease; F20.9 Schizophrenia, unspecified; E11.9 Type 2 diabetes mellitus without complications; F17.210 Nicotine dependence, cigarettes, uncomplicated; J44.9 Chronic obstructive pulmonary disease, unspecified; Z79.899 Other long term (current) drug therapy; W19.XXXA Unspecified fall, initial encounter; Y93.89 Activity, other specified; Y92.89 Other specified places as the place of occurrence of the external cause; Y99.8 Other external cause status